=== PATIENT | female | born 1975 | race African-American/Black ===

== ENCOUNTER 2016-06-26 11:30 | Inpatient (IN) | payer BC ==
[~2016-06-26] VITALS: Ht 157.5 cm; Wt 11.3 kg
[2016-06-26 11:57] VITALS: BP 130/61
[2016-06-26 12:17] LABS: URINE BILIRUBIN NEGATIVE (Negative); URINE BLOOD 3+ (Negative); URINE GLUCOSE-RANDOM* NEGATIVE (Negative); URINE KETONES TRACE (Negative); URINE NITRITE NEGATIVE (Negative); URINE PROTEIN (DIPSTICK) 2+ (Negative); URINE SPECIFIC GRAVITY 1.025 (1.003-1.035)
[2016-06-26 12:19] LABS: HEMATOCRIT 35.5 % (37.0-47.0); HEMOGLOBIN 11.9 gm/dL (12.0-15.0); MCH 28.5 pg (26.0-34.0); MCHC 33.6 % (28.0-37.0); MCV 84.6 fL (80.0-100.0); PLATELET COUNT 324 thou/uL (150-400); RBC 4.19 mil/uL (4.20-5.00); WBC 19.3 thou/uL (4.0-11.0)
[2016-06-26 12:20] LABS: URINE COLOR REDDISH YELLOW
[2016-06-26 12:22] LABS: SQUAMOUS 4-10 Moderate /LPF (0-3); URINE RBC >20 Many /HPF (0-2); URINE WBC 0-5 Rare /HPF (0-5)
[2016-06-26 12:23] LABS: CASTS None Seen /LPF (None Seen); CRYSTALS None Seen /LPF (None Seen)
[2016-06-26 12:26] LABS: MANUAL DIFF YES
[2016-06-26 12:32] LABS: CALCIUM 8.9 mg/dL (8.5-10.1); CREATININE 0.9 mg/dL (0.6-1.3); POTASSIUM 3.8 mmol/L (3.5-5.1)
[2016-06-26 12:37] LABS: ALBUMIN 3.4 g/dL (3.4-5.0); TOTAL BILIRUBIN 0.8 mg/dL (<0.1-1.0)
[2016-06-26 12:49] LABS: ABSOLUTE NEUTROPHILS 16.2 thou/uL (1.4-8.2); TOTAL CELL COUNT 100
[2016-06-26 15:50] VITALS: BP 120/61
[2016-06-26 16:00] VITALS: BP 137/52
[2016-06-26 19:05] VITALS: BP 111/78
[2016-06-27] VITALS: BP 130/79
[2016-06-27 01:40] LABS: HEMATOCRIT 33.3 % (37.0-47.0); HEMOGLOBIN 10.8 gm/dL (12.0-15.0); MCH 28.4 pg (26.0-34.0); MCHC 32.5 % (28.0-37.0); MCV 87.3 fL (80.0-100.0); PLATELET COUNT 289 thou/uL (150-400); RBC 3.82 mil/uL (4.20-5.00); RDW 14.6 % (10.5-14.5); WBC 15.7 thou/uL (4.0-11.0)
[2016-06-27 01:48] LABS: CALCIUM 7.7 mg/dL (8.5-10.1); CREATININE 0.8 mg/dL (0.6-1.3); POTASSIUM 3.5 mmol/L (3.5-5.1)
[2016-06-27 01:52] LABS: ALBUMIN 2.6 g/dL (3.4-5.0); PHOSPHORUS 2.5 mg/dL (2.5-4.9)
[2016-06-27 02:04] LABS: MANUAL DIFF YES
[2016-06-27 03:52] LABS: ABSOLUTE NEUTROPHILS 12.4 thou/uL (1.4-8.2); TOTAL CELL COUNT 100
[2016-06-27 03:53] LABS: ANISOCYTOSIS SLIGHT; LARGE PLATELETS RARE
[2016-06-27 05:15] VITALS: BP 132/63
[2016-06-27 08:52] VITALS: BP 113/52
[2016-06-27 16:00] VITALS: BP 143/82
[2016-06-27 20:21] VITALS: BP 136/82
[2016-06-28 03:21] VITALS: BP 130/78
[2016-06-28 08:00] VITALS: BP 133/63
[2016-06-28] MEDS ORDERED: REGLAN 10 MG TA10 MG PO (10:38)
[2016-06-28] MEDS ORDERED: AUGMENTIN 875875 MG PO (10:38)
[2016-06-28] MEDS ORDERED: TRAMADOL 50 MG50 MG PO (10:38)
[2016-06-28 10:58] VITALS: BP 133/63
[2016-06-28 16:37] VITALS: BP 133/63
== END 2016-06-28 13:45 | disposition home or self-care (01) | DRG 872 ==
LOC: ER 11:30 → EROBS 14:54 → 4N 14:54
PROVIDERS: Hospitalist; Nurse Practitioner Family
DX: A41.9 Sepsis, unspecified organism (principal); K57.92 Diverticulitis of intestine, part unspecified, without perforation or abscess without bleeding; E86.0 Dehydration; D64.9 Anemia, unspecified; D25.9 Leiomyoma of uterus, unspecified; G43.909 Migraine, unspecified, not intractable, without status migrainosus; K76.9 Liver disease, unspecified; F17.210 Nicotine dependence, cigarettes, uncomplicated; Z88.6 Allergy status to analgesic agent; Z79.899 Other long term (current) drug therapy; Z98.890 Other specified postprocedural states
CPT/HCPCS: 10790